=== PATIENT | male | born 1995 | race Two or more races ===

== ENCOUNTER 2023-08-29 17:30 | Emergency (ER) | payer BC ==
[~2023-08-29] VITALS: Ht 172.7 cm; Wt 74.8 kg
[2023-08-29] MEDS ORDERED: KETOROLAC TROMETHAMINE 15 MG/ML VIAL ONE (18:40)
[2023-08-29] MEDS: KETOROLAC TROMETHAMINE 15 MG/ML VIAL IV ONE (18:44)
[2023-08-29] MEDS: IV NS 0.9% 1,000 ML BAG IV ONE (18:44)
[2023-08-29 18:48] LABS: BASOPHILS % (AUTO) 0.7 % (0.0-2.0); EOSINOPHILS # (AUTO) 0.1 K/uL (0.0-0.7); EOSINOPHILS % (AUTO) 1.9 % (0.0-6.0); HEMATOCRIT 43 % (39-51); HEMOGLOBIN 15.5 g/dL (13.5-17.5); LYMPHOCYTES # (AUTO) 1.7 K/uL (0.8-4.8); LYMPHOCYTES % (AUTO) 28.6 % (20.0-44.0); MEAN CORPUSCULAR HEMOGLOBIN 32 PG (26.0-33.0); MEAN CORPUSCULAR HGB CONC 36 g/dl (31.0-36.0); MEAN CORPUSCULAR VOLUME 90 fL (80-96); MONOCYTES # (AUTO) 0.4 K/uL (0.1-1.30); MONOCYTES % (AUTO) 7.1 % (2.0-12.0); NEUTROPHILS # (AUTO) 3.7 K/uL (1.8-8.9); NEUTROPHILS % (AUTO) 61.7 % (43.0-81.0); PLATELET COUNT (AUTO) 153 K/uL (150-450); RED CELL DISTRIBUTION WIDTH 13.1 % (11.5-15.0); WHITE BLOOD COUNT (AUTO) 5.9 K/uL (4.3-11.0)
[2023-08-29 19:00] LABS: CALCIUM, SERUM 9.2 mg/dL (8.5-10.1)
[2023-08-29 19:08] LABS: ALBUMIN 3.8 g/dL (3.4-5.0); BILIRUBIN,DIRECT 0.2 mg/dL (0.0-0.2); BILIRUBIN,TOTAL 0.8 mg/dL (0.2-1.0); TOTAL PROTEIN, SERUM 7.2 g/dL (6.4-8.2)
[2023-08-29] MEDS ORDERED: IOHEXOL-300 100 ML VIAL IV ONE (19:41)
[2023-08-29] MEDS ORDERED: IV NS 0.9% 250 ML IV ONE (19:42)
[2023-08-29 20:25] LABS: APPEARANCE,URINE CLEAR (CLEAR); BILIRUBIN,URINE NEGATIVE (NEGATIVE); BLOOD, URINE NEGATIVE Ery/uL (NEGATIVE); COLOR,URINE YELLOW (YELLOW); KETONES,URINE NEGATIVE (NEGATIVE); LEUKOCYTE ESTERASE ,URINE NEGATIVE (NEGATIVE); NITRITE, URINE NEGATIVE (NEGATIVE); PH,URINE 6.5 (5.0-8.0); PROTEIN,URINE NEGATIVE (NEGATIVE); UGLUCOSE NEGATIVE (NEGATIVE); UROBILINOGEN,URINE 0.2 EU/dL (0.2)
[2023-08-29 22:24] VITALS: BP 132/78; TEMP 98.2; O2SAT 99
== END 2023-08-29 22:24 | disposition home or self-care (01) ==
LOC: ER 17:30
DX: N50.812 Left testicular pain (principal); R10.32 Left lower quadrant pain; R10.31 Right lower quadrant pain; R19.7 Diarrhea, unspecified; K59.00 Constipation, unspecified; F41.9 Anxiety disorder, unspecified
CPT/HCPCS: 99285; 74176; 96374; 96361; 76870; 85025; 80048; 87086; 83690; 80076; 81003; 36415; J7030; J7050; Q9967; J1885